=== PATIENT | female | born 1950 | race Caucasian/White ===

== ENCOUNTER → 2021-05-10 | Outpatient (CLI) | payer MEDICARE ==
[~2021-05-10] MED LIST: CALCIUM W/VITAM1 TAB PO; FLUTICASON0.05 MG/Ac NS; LISINOPRIL/HCTZ1 TA2 PO; MECLIZINE25 MG PO; NASAL 15 ML15 M1 NS; SINGULAIR10 MG PO; VITAMIN D1000 IU PO
== END ==
LOC: COL.RAD 04-05 11:15
DX: J34.89 Other specified disorders of nose and nasal sinuses (principal); G31.9 Degenerative disease of nervous system, unspecified; G93.9 Disorder of brain, unspecified; D49.6 Neoplasm of unspecified behavior of brain
CPT/HCPCS: A9585

== ENCOUNTER → 2021-11-06 | Outpatient (CLI) | payer MEDICARE | LOC: COL.RAD 07:08 | DX: C71.2 Malignant neoplasm of temporal lobe (principal) | CPT/HCPCS: A9575 ==